=== PATIENT | male | born 1965 | race Caucasian/White ===

== ENCOUNTER → 2022-04-30 13:10 | Outpatient (BNVA) | payer MEDICARE, MEDICAID, SELFPAY | PROVIDERS: PCP Internal Medicine; Referring Provider Internal Medicine; Visit Provider Internal Medicine Cardiovascular Disease | DX: I48.0 Paroxysmal atrial fibrillation (principal) | CPT/HCPCS: 93005; 99202 ==

== ENCOUNTER 2022-11-09 09:33 | Outpatient (AMB) | payer MEDICARE, MEDICAID, SELFPAY ==
--- NOTE | 2022-11-09 09:45 | A.OFFVIS_ITS ---
Intake Vital Signs 11/09/22 09:46 Height 5 ft 10 in Weight 147 lb 11.355 oz BMI 21.2 BP 120/68 Blood Pressure Location Lt brachial Position Sitting Pulse 103 H Intake Visit Reasons: 6 month f/u ekg pre-op Intake Note: Pre-op clearance 6 month follow-up with ekg Product Mgmt Dev Manager Required: No Front Line Leader: Front Line Leader Present Accompanied by: Family/Other Allergies No Known Allergies Allergy (Verified 04/30/22 13:17) Medication List - Last Reconciled 11/09/22 by Rory Linares MD acetaminophen 650 mg PO Q6H PRN flecainide 50 mg PO Q12H loperamide 2 mg PO Q4H PRN verapamil ER 120 mg PO DAILY HPI HPI Comments History of Present Illness Details Gio comes for follow-up. Accompanied by his brother. No brain imaging on the chart. Patient denies any new symptoms. Denies any prolonged palpitation irregular heartbeat. No changes in his cognitive capacity. Taking all his medications. Denies any active cardiac symptoms. No exertional chest pain or shortness of breath. Plan for undergoing colonoscopy in the future [facility] Medical History Paroxysmal atrial fibrillation Hypertension Chronic cardiac arrhythmia Frontal lobe dementia Surgical History No pertinent past surgical history Family History Mother No problems noted. Father No problems noted. Social History Housing: House Alcohol intake: never Patient Tobacco Use Status: Current everyday Tobacco user Tobacco use type: Cigarette Cigarettes Per Day: 9 e-Cigarette/Vaping Use: Never Used Second Hand Smoke Exposure: Yes service: No Current occupational status: employed Cognitive needs: No Hearing needs: No Vision needs: Yes (reading glasses) Review of Systems Const Denies chills, Denies fatigue, Denies fever(s), Denies frequent falls, Denies weakness, Denies weight gain and Denies weight loss ENT Denies dizziness Card Denies chest pain, Denies leg edema, Denies lightheadedness, Denies palpitations, Denies dyspnea, Denies dyspnea on exertion, Denies orthopnea and Denies other (loss of consciousness) Resp Denies cough, Denies dyspnea and Denies dyspnea on exertion GI Denies hematochezia and Denies change in stool character Musc Denies abnormal gait, Denies muscle weakness, Denies numbness, Denies radiating pain into limb and Denies tingling Neuro Denies Abnormal speech present, Denies abnormal gait, Denies dizziness, Denies frequent falls, Denies numbness, Denies tingling and Denies weakness Endo Denies fatigue and Denies palpitations Physical Exam Vital Signs: Last Vital Signs Pulse 103 H 11/09/22 09:46 BP 120/68 11/09/22 09:46 BMI result Body Mass Index 21.2 Const General: cooperative, comfortable, alert and awake Nutritional Appearance: thin Orientation/consciousness: patient oriented x3 Limitations: no limitations HEENT Head: Yes normocephalic and Yes atraumatic Neck Neck: Yes trachea midline, Yes supple and Yes no JVD Resp Effort & Inspection: normal respiratory effort Auscultation: clear to auscultation bilaterally and diminished lung sounds Cardio Jugular venous distension: no JVD Rate: regular rate and tachycardic Rhythm: regular rhythm Heart sounds: S1 normal heart sound present, S2 normal heart sound present, no click, no gallops, no murmurs and no rubs Bruits: no carotid bruits GI Auscultation: normal bowel sounds Skin General skin exam: no rashes or lesions noted Neuro General: patient oriented x3 and no focal motor deficits Speech: No Abnormal speech present Extrem General: Yes no clubbing, cyanosis or edema Office Procedures EKG Details: EKG shows sinus tachycardia with left posterior fascicular block, unchanged from before. 42555-Tjeazwdzcidvwdhqo, Complete Assessment & Plan Assessment & Plan (1) Paroxysmal atrial fibrillation: Code(s): I48.0 - Paroxysmal atrial fibrillation Plan: Paroxysmal atrial fibrillation, highly symptomatic currently suppressed on flecainide and verapamil therapy. Doing well from that perspective. Will continue pursue rhythm control approach. I would like to obtain some old imaging/Neurology note regarding his cognitive impairment diagnosis. Currently not a candidate for oral anticoagulation therapy as he has no other risk factors. (2) Preoperative cardiovascular examination: Code(s): Z01.810 - Encounter for preprocedural cardiovascular examination Plan: Preoperative cardiovascular risk stratification for colonoscopy which is considered low risk procedure. Currently from cardiac perspective he remains asymptomatic. He is currently at low risk for perioperative cardiovascular morbidity mortality. Continue verapamil and flecainide in the perioperative time. Will follow up in the clinic in 6 months for EKG and in 1 year with me. Thank you for allowing me to partake in his care Coding Level of Care Code Est Pt Level 4 (46212) Diagnoses Paroxysmal atrial fibrillation I48.0 Preoperative cardiovascular examination Z01.810 CPT Codes EKG - CPT: 66634-Zoycauvjwbthggifj, Complete ([id number])
[2022-11-09 09:46] VITALS: BP 120/68; PULSE 103; BMI 21.2
== END 2022-11-09 10:04 | disposition home or self-care (01) ==
PROVIDERS: PCP Internal Medicine; Referring Provider Internal Medicine; Visit Provider Internal Medicine Cardiovascular Disease
DX: I48.0 Paroxysmal atrial fibrillation (principal); Z01.810 Encounter for preprocedural cardiovascular examination
CPT/HCPCS: 93010; 99214

== ENCOUNTER → 2022-11-09 09:33 | Outpatient (BNVA) | payer MEDICARE, MEDICAID, SELFPAY | PROVIDERS: PCP Internal Medicine; Referring Provider Internal Medicine; Visit Provider Internal Medicine Cardiovascular Disease | DX: Z01.810 Encounter for preprocedural cardiovascular examination (principal); I48.0 Paroxysmal atrial fibrillation; Z79.899 Other long term (current) drug therapy | CPT/HCPCS: 93005; 99212 ==

== ENCOUNTER 2023-09-30 10:42 | Outpatient (AMB) | payer MEDICARE, MEDICAID, SELFPAY ==
[2023-09-30 10:48] VITALS: BP 122/80; PULSE 76; O2SAT 97; BMI 20.5
--- NOTE | 2023-09-30 10:48 | MHC.PC.OV ---
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: No Claim Auditor: Present Accompanied by: Self / Same As Patient Allergies No Known Allergies Allergy (Verified 09/30/23 10:51) Tobacco use date assessed: 09/30/23 Dental Screening Dental Screen Date: 09/30/23 Did you have a dental visit in the last 12 months?: Yes Did you have a dental problem in the last 6 months where you did not have access to dental care?: No Was dental information given to patient?: Patient has dentist HPI pe HPI Details hyperlipidemia and hypertension; sees cardiology for afib [facility] Medical History Paroxysmal atrial fibrillation Hypertension Chronic cardiac arrhythmia Frontal lobe dementia Surgical History No pertinent past surgical history Family History Mother No problems noted. Father No problems noted. Social History Housing: House Alcohol intake: never Patient Tobacco Use Status: Current everyday Tobacco user Tobacco use type: Cigarette Cigarettes Per Day: 9 e-Cigarette/Vaping Use: Never Used Second Hand Smoke Exposure: Yes service: No Current occupational status: employed Cognitive needs: No Hearing needs: No Vision needs: Yes (reading glasses) Questionnaire PHQ-9 Over the last 2 weeks, how often have you been bothered by any of the following problems? 1. Little interest or pleasure in doing things: not at all 2. Feeling down, depressed, or hopeless: not at all 3. Trouble falling or staying asleep, or sleeping too much: not at all 4. Feeling tired or having little energy: not at all 5. Poor appetite or overeating: not at all 6. Feeling bad about yourself - or that you are a failure or have let yourself or your family down: not at all 7. Trouble concentrating on things, such as reading the newspaper or watching television: not at all 8. Moving or speaking so slowly that other people could have noticed. Or the opposite - being so fidgety or restless that you have been moving around a lot more than usual: not at all 9. Thoughts that you would be better off or of hurting yourself in some way: not at all Total score: 0 Depression Screening Interpretation: Negative Depression Screening Done: Yes 75766 - PHQ-9 Billing: Patient declined-do not bill Source: Developed by Drs. Elie Currie, Sultana Rowley, Nick Leon and colleagues, with an educational ida from [employer]. Thrive Questionnaire Date Thrive assessed: 09/30/23 I am a: Patient What is your living situation today?: I have a steady place to live Within the past 12 months, did the food you bought not last and you didn't have the money to get more?: Never true Within the past 12 months, did you worry whether your food would run out before you got money to buy more?: Never true Do you have trouble paying for medicines?: No Do you have trouble getting transportation to medical appointments?: No Do you have trouble paying your heating and electricity bill?: No Do you have trouble taking care of your child, family member or friend?: No Do you have trouble with day-to-day activities such as bathing, preparing meals, shopping, managing finances, etc.?: No Are you currently unemployed and looking for a job?: No Are you interested in more education?: No Please select the resources that you would like help with: None THRIVE Score: 0 AUDIT C Alcohol Use Questionnaire (AUDIT-C) 1. How often do you have a drink containing alcohol?: Never Total Score: 0 Score Reviewed/Action Taken: Yes CHARLEE-7 AMB Questionnaire CHARLEE-7 Date CHARLEE - 7 assessed: 09/30/23 Feeling nervous, anxious, or on edge: 0 = Not at all Not being able to stop or control worryin = Not at all Worrying too much about different things: 0 = Not at all Trouble relaxin = Not at all Being so restless that it is hard to sit still: 0 = Not at all Becoming easily annoyed or irritable: 0 = Not at all Feeling afraid as if something awful might happen: 0 = Not at all Total CHARLEE-7 score (0-4 normal; 5-9 mild; 10-14 moderate; 15-21 severe): 0 Source: Developed by Drs. Elie Currie, Sultana Rowley, Nick Leon and colleagues, with an educational ida from [employer]. CHARLEE-7 Assessment Billing CHARLEE-7 Assessment Tool: CHARLEE-7 Assessment 44650 Review of Systems Const Denies chills, Denies fatigue, Denies headache(s) and Denies weight loss Eyes Denies change in vision, Denies diplopia and Denies eye pain ENT Denies vertigo, Denies dizziness, Denies headache(s) and Denies nasal discharge Card Denies chest pain, Denies rapid heart rate and Denies dyspnea on exertion Resp Denies chest congestion, Denies cough, Denies pain with cough and Denies dyspnea on exertion GI Denies abdominal pain, Denies hematochezia and Denies change in bowel habits Musc Denies myalgias, Denies arthralgias and Denies joint swelling Skin/Breast Denies lesions and Denies unusual bruising Neuro Denies vertigo, Denies dizziness, Denies headache(s) and Denies focal weakness Endo Denies fatigue Physical exam (Primary Care) Vital Signs: Last Vital Signs Pulse 76 09/30/23 10:48 BP 122/80 09/30/23 10:48 Pulse Ox 97 09/30/23 10:48 Oxygen Delivery Method Room Air 09/30/23 10:48 BMI result Body Mass Index 20.5 Tobacco/Smoking Status: Tobacco use Status Tobacco use date assessed 09/30/23 09/30/23 10:54 Patient Tobacco Use Status Current everyday Tobacco 09/30/23 10:54 Tobacco use type Cigarette 09/30/23 10:54 e-Cigarette/Vaping Use Never Used 09/30/23 10:54 PHQ-9: PHQ-9 Score PHQ-9: Total score 0 09/30/23 11:17 Depression Screening Interpretation: Negative Thrive Assessment: Date of Thrive Assessment Date Thrive assessed 09/30/23 09/30/23 10:54 Const General: cooperative, healthy appearing and no acute distress Orientation/consciousness: oriented to person, oriented to place and oriented to time HENMT Head: Yes normal to inspection, Yes normocephalic and Yes atraumatic Mouth: Normal oral and palatal mucosa present and tongue normal Throat: Yes posterior oropharynx normal and Yes uvula midline Eyes General: appearance normal, both eyes and all related structures Neck Neck: Yes normal visual inspection, Yes full ROM and Yes no lymphadenopathy Thyroid: Thyroid normal Carotids: normal carotid upstroke Chest Chest palpation & inspection: normal inspection of the chest Resp Effort & Inspection: normal respiratory effort and able to speak in complete sentences Auscultation: clear to auscultation bilaterally Cardio Jugular venous distension: no JVD Palpation: normal PMI Rate: regular rate Rhythm: regular rhythm Heart sounds: S1 normal heart sound present and S2 normal heart sound present GI Inspection: Yes normal to inspection Palpation (GI): Soft to palpation and No hepatosplenomegaly present Auscultation: normal bowel sounds General: Yes no CVA tenderness Back/Spine/Pelvis Back: no CVA tenderness Skin General skin exam: no rashes or lesions noted Neuro General: oriented to person, oriented to place and oriented to time Extrem General: Yes normal to inspection and Yes full ROM Assessment and Plan Assessment & Plan (1) Physical exam: Code(s): Z00.00 - Encounter for general adult medical examination without abnormal findings Plan: do labs (2) Hypertension: Code(s): I10 - Essential (primary) hypertension Plan: stable; same rx (3) Chronic cardiac arrhythmia: Code(s): I49.9 - Cardiac arrhythmia, unspecified Plan: per cardiology Orders: Orders Lipid Panel 09/30/23 Z13.220 - Encounter for screening for lipoid disorders Complete Blood Count Auto Diff 09/30/23 Z13.0 - Encounter for screening for diseases of the blood and blood-forming organs and certain disorders involving the immune mechanism Comprehensive [place]. Panel Fast 09/30/23 Z13.9 - Encounter for screening, unspecified Thyroid Stimulating Hormone 09/30/23 Z13.29 - Encounter for screening for other suspected endocrine disorder Referrals Gastroenterology Referral Z12.11 - Encounter for screening for malignant neoplasm of colon Coding Level of Care Code Est Pt Prev Care 40-64y(19529) Diagnoses Physical exam Z00.00 Hypertension I10 Chronic cardiac arrhythmia I49.9 Additional Codes CHARLEE-7 Assessment Billing - CHARLEE-7 Assessment Tool: CHARLEE-7 Assessment 47474 ([id number])
== END 2023-09-30 12:40 | disposition home or self-care (01) ==
PROVIDERS: PCP Internal Medicine; Visit Provider Internal Medicine
DX: Z00.00 Encounter for general adult medical examination without abnormal findings (principal); I10 Essential (primary) hypertension; I49.9 Cardiac arrhythmia, unspecified
CPT/HCPCS: 99396

== ENCOUNTER 2024-05-12 11:21 | Outpatient (REF) | payer MEDICARE, MEDICAID, SELFPAY ==
[2024-05-12 12:21] LABS: MANUAL DIFF FLAG NO
[2024-05-12 12:42] LABS: Basophils Absolute Auto 0.1 X10*3/uL (0.0-0.2); Basophils Percent Auto 0.9 % (0-2); Eosinophils Absolute Auto 0.1 X10*3/uL (0.0-0.4); Eosinophils Percent Auto 1.9 % (0-4); Hematocrit 44.4 % (42.0-52.0); Hemoglobin 15.2 g/dl (14.0-18.0); Imm Gran Abs Auto 0.03 X10*3/uL (0.00-0.03); Imm Gran Pct Auto 0.4 % (0.0-0.4); Lymphocytes Absolute Auto 1.9 X10*3/uL (1.2-4.9); Lymphocytes Percent Auto 27.4 % (20-40); Mean Corpuscular HGB Conc 34.2 g/dl (31.0-36.0); Mean Corpuscular Hemoglobin 29.4 pg (27.0-33.0); Mean Corpuscular Volume 85.9 fL (80.0-98.0); Mean Platelet Volume 9.4 fL (9.4-12.4); Monocytes Absolute Auto 0.5 X10*3/uL (0.1-1.2); Monocytes Percent Auto 7.4 % (2-11); Neutrophils Absolute Auto 4.3 x10*3/uL (2.0-8.3); Platelet Count 374 X10*3/uL (160-400); Red Blood Count 5.17 X10*6/uL (4.60-5.80); Red Cell Distribution Width 13.2 % (11.0-16.0); White Blood Count 6.9 X10*3/uL (4.8-10.8)
[2024-05-12 13:11] LABS: Appearance Urine Clear; Color Urine Yellow; Glucose Urine UA Negative (Negative); Leukocyte Esterase Urine Trace (Negative); Nitrite Urine Negative (Negative); UMIC TRIGGER UA YES; Urine Blood Negative (Negative); Urine Ketones Negative (Negative); Urine Protein Negative (Neg-Trace)
[2024-05-12 13:11] LABS: Alanine Aminotransferase 23 U/L (0-40); Albumin Level 4.3 g/dL (3.5-5.0); Alkaline Phosphatase 76 U/L (39-117); Anion Gap 11 (12-20); Aspartate Amino Transferase 19 U/L (5-37); Bilirubin Total 0.5 mg/dL (0.0-1.0); Blood Urea Nitrogen 18 mg/dL (9-16); Calcium 9.4 mg/dL (8.4-10.2); Carbon Dioxide 28 mmol/L (22-29); Chloride 106 mmol/L (96-108); Cholesterol 180 mg/dL (<200); Estimated Glomerular Filt Rate > 60; Glucose Fasting 99 mg/dL (60-99); HDL Cholesterol 54 mg/dL (>40); LDL Cholesterol Calculated 89 mg/dL (<100); Potassium 4.3 mmol/L (3.3-5.1); Sodium 141 mmol/L (135-145); Total Protein 7.3 g/dL (6.5-8.0); Triglycerides 187 mg/dL (<150)
[2024-05-12 13:17] LABS: Bacteria Urine None Seen (None Seen); Hyaline Casts Urine 0-2 /LPF (0-2); RBC Urine 0-2 /HPF (0-2); Squamous Epithelial Cell Urine 0-2 /HPF (0-2); WBC Urine 0-5 /HPF (0-5)
[2024-05-12 13:25] LABS: Thyroid Stimulating Hormone 1.73 uIU/mL (0.32-4.0)
--- OUTSIDE RECORDS SUMMARY | 2024-05-12 13:44 | XMS_ITS | Clinical Summary ---
Author Organization [facility] Address [address] [place] [address] Care Team Providers Care Bullet Slugs Inspector Name Role Phone Unavailable Primary Care Provider Unavailabl e Social History Tobacco Use Types Packs/Day Years Used Date Smoking Tobacco: Never Assessed Sex and Gender Information Value Date Recorded Sex Assigned at Not on file Gender Identity Not on file Sexual Orientation Not on file Plan of Treatment Not on file
== END 2024-05-12 11:22 | disposition home or self-care (01) ==
LOC: HO.LAB 11:21
PROVIDERS: PCP Internal Medicine; Visit Provider Internal Medicine
DX: I48.0 Paroxysmal atrial fibrillation (principal); G31.09 Other frontotemporal neurocognitive disorder; F02.80 Dementia in other diseases classified elsewhere, unspecified severity, without behavioral disturbance, psychotic disturbance, mood disturbance, and anxiety; I10 Essential (primary) hypertension; N39.0 Urinary tract infection, site not specified; Z13.0 Encounter for screening for diseases of the blood and blood-forming organs and certain disorders involving the immune mechanism; Z13.9 Encounter for screening, unspecified; Z13.220 Encounter for screening for lipoid disorders; Z13.29 Encounter for screening for other suspected endocrine disorder
CPT/HCPCS: 36415; 80053; 80061; 81001; 84443; 85025; 96127; 99212

== ENCOUNTER 2024-05-12 11:21 | Outpatient (AMB) | payer MEDICARE, MEDICAID, SELFPAY ==
[2024-05-12 11:36] VITALS: BP 112/68; PULSE 82; O2SAT 98; BMI 20.4
--- NOTE | 2024-05-12 11:36 | MHC.PC.OV ---
Vital Signs 05/12/24 11:36 Height 5 ft 10 in Weight 142 lb 2 oz BMI 20.4 BP 112/68 Blood Pressure Location Lt brachial Position Sitting Pulse 82 Pulse Source Pulse Oximeter Pulse Oximetry (%) 98 Oxygen Delivery Method Room Air Intake Visit Reasons: incontinence issues Supervisor Shuttle Preparation Required: No Accompanied by: Self / Same As Patient Allergies No Known Allergies Allergy (Verified 05/12/24 11:36) Medication List - Last Reconciled 05/15/24 by Nathaniel Jensen MD acetaminophen 650 mg PO Q6H PRN flecainide 50 mg PO Q12H loperamide 2 mg PO Q4H PRN rosuvastatin 5 mg PO DAILY verapamil ER 120 mg PO DAILY Tobacco use date assessed: 05/12/24 Dental Screening Dental Screen Date: 05/12/24 Did you have a dental visit in the last 12 months?: No Did you have a dental problem in the last 6 months where you did not have access to dental care?: No Was dental information given to patient?: No HPI incontinence issues HPI Details frontal lobe dementia and afib; sees cardiology; cognition stable [facility] Medical History Paroxysmal atrial fibrillation Hypertension Chronic cardiac arrhythmia Frontal lobe dementia Surgical History No pertinent past surgical history Family History Mother No problems noted. Father No problems noted. Social History Housing: House Alcohol intake: never Patient Tobacco Use Status: Current everyday Tobacco user Tobacco use type: Cigarette Cigarettes Per Day: 9 e-Cigarette/Vaping Use: Never Used Second Hand Smoke Exposure: Yes service: No Current occupational status: employed Cognitive needs: No Hearing needs: No Vision needs: Yes (reading glasses) Questionnaire PHQ-9 Over the last 2 weeks, how often have you been bothered by any of the following problems? 1. Little interest or pleasure in doing things: not at all 2. Feeling down, depressed, or hopeless: not at all 3. Trouble falling or staying asleep, or sleeping too much: not at all 4. Feeling tired or having little energy: not at all 5. Poor appetite or overeating: not at all 6. Feeling bad about yourself - or that you are a failure or have let yourself or your family down: not at all 7. Trouble concentrating on things, such as reading the newspaper or watching television: not at all 8. Moving or speaking so slowly that other people could have noticed. Or the opposite - being so fidgety or restless that you have been moving around a lot more than usual: not at all 9. Thoughts that you would be better off or of hurting yourself in some way: not at all Total score: 0 Depression Screening Interpretation: Negative Depression Screening Done: Yes 47857 - PHQ-9 Billing: Patient declined-do not bill Source: Developed by Drs. Elie Currie, Sultana Rowley, Nick Leon and colleagues, with an educational ida from [employer]. Thrive Questionnaire Date Thrive assessed: 05/12/24 I am a: Patient What is your living situation today?: I have a steady place to live Within the past 12 months, did the food you bought not last and you didn't have the money to get more?: Never true Within the past 12 months, did you worry whether your food would run out before you got money to buy more?: Never true Do you have trouble paying for medicines?: No Do you have trouble getting transportation to medical appointments?: No Do you have trouble paying your heating and electricity bill?: No Do you have trouble taking care of your child, family member or friend?: No Do you have trouble with day-to-day activities such as bathing, preparing meals, shopping, managing finances, etc.?: No Are you currently unemployed and looking for a job?: No Are you interested in more education?: No Please select the resources that you would like help with: None Currently or been in a relationship where the following occur: No concerns reported THRIVE Score: 0 AUDIT C Alcohol Use Questionnaire (AUDIT-C) 1. How often do you have a drink containing alcohol?: Never Total Score: 0 Score Reviewed/Action Taken: Yes CHARLEE-7 AMB Questionnaire CHARLEE-7 Date CHARLEE - 7 assessed: 05/12/24 Feeling nervous, anxious, or on edge: 0 = Not at all Not being able to stop or control worryin = Not at all Worrying too much about different things: 0 = Not at all Trouble relaxin = Not at all Being so restless that it is hard to sit still: 0 = Not at all Becoming easily annoyed or irritable: 0 = Not at all Feeling afraid as if something awful might happen: 0 = Not at all Total CHARLEE-7 score (0-4 normal; 5-9 mild; 10-14 moderate; 15-21 severe): 0 Source: Developed by Drs. Elie Currie, Sultana Rowley, Nick Leon and colleagues, with an educational ida from [employer]. CHARLEE-7 Assessment Billing CHARLEE-7 Assessment Tool: CHARLEE-7 Assessment 77877 Review of Systems Const Denies chills, Denies headache(s) and Denies weight loss ENT Denies headache(s) Card Denies chest pain, Denies syncope, Denies irregular heart rhythm and Denies dyspnea Resp Denies chest congestion, Denies cough and Denies dyspnea GI Denies abdominal pain, Denies change in stool character, Denies nausea and Denies vomiting Musc Denies deformity and Denies joint swelling Neuro Denies syncope and Denies headache(s) Physical exam (Primary Care) Vital Signs: Last Vital Signs Pulse 82 05/12/24 11:36 BP 112/68 05/12/24 11:36 Pulse Ox 98 05/12/24 11:36 Oxygen Delivery Method Room Air 05/12/24 11:36 BMI result Body Mass Index 20.4 Tobacco/Smoking Status: Tobacco use Status Tobacco use date assessed 05/12/24 05/12/24 11:40 Patient Tobacco Use Status Current everyday Tobacco 05/12/24 11:40 Tobacco use type Cigarette 05/12/24 11:40 e-Cigarette/Vaping Use Never Used 05/12/24 11:40 PHQ-9: PHQ-9 Score PHQ-9: Total score 0 05/12/24 11:40 Depression Screening Interpretation: Negative Thrive Assessment: Date of Thrive Assessment Date Thrive assessed 05/12/24 05/12/24 11:40 Currently or been in a relationship where the following occur: No concerns reported Const General: cooperative, comfortable, no acute distress and alert Neck Neck: Yes no lymphadenopathy Thyroid: Thyroid normal Resp Effort & Inspection: normal respiratory effort Auscultation: clear to auscultation bilaterally Percussion: percussion normal Cardio Jugular venous distension: no JVD Palpation: normal PMI Rate: regular rate Rhythm: regular rhythm Heart sounds: S1 normal heart sound present and S2 normal heart sound present GI Inspection: Yes normal to inspection Palpation (GI): No hepatosplenomegaly present Skin General skin exam: no rashes or lesions noted Extrem General: Yes no clubbing, cyanosis or edema Coding Level of Care Code Est Pt Level 3 (27823) Diagnoses Paroxysmal atrial fibrillation I48.0 Frontal lobe dementia G31.09; F02.80 Additional Codes CHARLEE-7 Assessment Billing - CHARLEE-7 Assessment Tool: CHARLEE-7 Assessment 29646 ([id number]) Assessment & Plan Assessment & Plan (1) Paroxysmal atrial fibrillation: Code(s): I48.0 - Paroxysmal atrial fibrillation Category: Medical Plan: stable; same rx (2) Frontal lobe dementia: Code(s): G31.09 - Other frontotemporal neurocognitive disorder; F02.80 - Dementia in other diseases classified elsewhere, unspecified severity, without behavioral disturbance, psychotic disturbance, mood disturbance, and anxiety Category: Medical Plan: stable; same rx Orders: Orders UA and rflx microscopic 05/12/24 N39.0 - Urinary tract infection, site not specified Referrals Cardiology Referral I48.0 - Paroxysmal atrial fibrillation
--- OUTSIDE RECORDS SUMMARY | 2024-05-12 13:07 | XMS_ITS | Clinical Summary ---
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
--- OUTSIDE RECORDS SUMMARY | 2024-05-12 13:07 | XMS_ITS ---
Author Organization [facility] Address [address] [place] [address] Care Team Providers Care Government Documents Librarian Name Role Phone Nathaniel Jensen MD Primary Care Provider Unavaila Elie Delong Unavailable [phone] REASON FOR VISIT cancel procedure Encounters Encounter Location Date Provider Diagnosis [facility] [address] [place] [address] 05/04/2024 Elie Larkin Plan Of Treatment No Information Progress Notes * MAISHA ROBBINSDOB:1965 (58 yo M)Acc No.[id number]:05/04/2024 Patient:?MAISHA ROBBINS :1965???Age:58 Y???Sex:Male Address:[address] [place] [address] [facility], [place], [address] * true * Date:? Generated for Sinan macias/Gualberto/eTransmitting on:?05/12/2024 01:07 PM EDT
--- OUTSIDE RECORDS SUMMARY | 2024-05-12 13:07 | XMS_ITS ---
Author Organization [facility] Address [address] [place] [address] Care Team Providers Care Feed Miller Name Role Phone Nathaniel Jensen MD Primary Care Provider Elie Dougherty [phone] Allergies No Known Allergies REASON FOR VISIT Patient presents today for a colon screening Medications Medication SIG (Take, Route, Frequency, Duration) Notes Start Date End Date Status Flecainide Acetate 50 MG as directed Ora l every 12 hrs Active Verapamil HCl ER 120 MG Oral for 30 Active Rosuvastatin Calcium 5 MG Oral for 30 Active Acetaminophen 325 MG 2 tablet as needed orally every 4 hrs Active Loperamide HCl 2 MG 1 capsule as needed Orally Four times a day Active Social History Tobacco Use: Social History Observation Description Date Details (start date - stop date) Current Smoker NA - NA Tobacco Use/Smoking Question Answer Notes Patient is a current smoker How many cigarettes a day do you smoke? 6-10 Alcohol Screen Question Answer Notes Did you have a drink containing alcohol in the p ast year? No Points 0 Interpretation Negative Section Notes: Smokes 5 cigs QD, no EtOH Vital Signs Blood pressure systolic 00 mm Hg 03/09/19 25 Blood pressure diastolic 00 mm Hg 025 Height 70 in 03/09/2024 Weight 141 lbs 03/09/2024 BMI 20.23 kg/m2 03/09/2024 Encounters Encounter Location Date Provider [facility] [address] [place] [phone] 03/09/2024 Elie Larkin Colon cancer screeni ng Z12.11 and Preprocedural examination Z01.818 Assessments Encounter Date Diagnosis (ICD Code) Assessment Notes Treatment Notes Treatment Clinical Notes Section Notes 03/09/2024 Colon cancer screening (ICD-10 - Z12.11) Overall, Maisha appears well and is not having any new or worrisome GI complaints. We again reviewed the importance of a screening colonoscopy in regard to colon cancer prevention and/or early detection. He reports that he is now agreeable to that. Full consent is obtained for this, including risks of bleeding and perforation. The procedure will be done with monitored anesthesia care. Maisha was comfortable with this plan. Thank you again for allowing me to participate in Maisha's care. I shall continue to keep you advised of his progress. 03/09/2024 Preprocedural examination (ICD-10 - Z01.818) Overall, Maisha appears well and is not having any new or worrisome GI complaints. We again reviewed the importance of a screening colonoscopy in regard to colon cancer prevention and/or early detection. He reports that he is now agreeable to that. Full consent is obtained for this, including risks of bleeding and perforation. The procedure will be done with monitored anesthesia care. Maisha was comfortable with this plan. Thank you again for allowing me to participate in Maisha's care. I shall continue to keep you advised of his progress. Plan Of Treatment Future Test Test Name Order Date COLONOSCOPY 03/09/2024 Next Appt Details Follow Up: prn, Reason: Progress Notes * MAISHA ROBBINSDOB:1965 (58 yo M)Acc No.[id number]:03/09/2024 Progress Notes Patient:?MAISHA ROBBINS Provider:?Eile Larkin MD :1965???Age:58 Y???Sex:Male Eric e:03/09/2024 Address:[address] [place], [place] [id number] Pcp:Nathaniel Jensen MD Subjective: * Chief Complaints: * ???Patient presents today fo r a colon screening * HPI: ???incontinence:? I saw Maisha in the office today for evaluation of colorectal cancer screening. He was accompanied by Erinn from [facility] where he lives. ?I last saw Maisha in 2022 when he had been scheduled for a screening colonoscopy. However, that was ultimately canceled by him as he refused to have the procedure for unclear reasons. As far as I know he has never had a colonoscopy. He has been feeling well from a GI standpoint. He has been eating comfortably and denies any significant heartburn or dysphagia. He denies abdominal pain, jaundice, nor unintentional weight loss. He reports his bowel movements have been regular and without any signs of bleeding. There is no known family history of colon cancer. * ROS:?General/Constitutional:?Change in appetite?denies.?Chills?denies.?Fatigue?denies.?Ophthalmologic:?Comments?all negative.?ENT:?Comments?all negative.?Respiratory:?hemoptysis?denies.?Cough?denies.?Cardiovascular:?Chest pain?denies.?Orthopnea?denies.?Gastrointestinal:?Comments?See HPI for details.?Genitourinary:?Hematuria?denies.?Dysuria?denies.?Musculoskeletal:?Painful joints?denies.?Weakness?denies.?Skin:?Itching?denies.?Rash?denies.?Neurologic:?Headache?denies.?Seizures?denies.?Psychiatric:?Comments?all negative.? * Medical History:? * Surgical History:?Denies Pas t Surgical History * Hospitalization/Major Diagno stic Procedure:?No Hospitalization History. * Family History:?Father: dece ased.?Mother: .? No known hx of colon cancer. * Social History:?Tobacco Use:?Tobacco Use/Smoking?Patient is a?current smoker,?How many cigarettes a day do you smoke??6-10.?Drugs/Alcohol:?Alcohol Screen?Did you have a drink containing alcohol in the past year??No,?Points?0,?Interpretation?Negative.?Miscellaneous:?Living with: Lives at [facility]. Marital status: single. Occupation: Unemployed. ???Smokes 5 cigs QD, no EtOH. * Medications:?TakingAcetamino phen 325 MG Tablet 2 tablet as needed orally every 4 hrsLoperamide HCl 2 MG Capsule 1 capsule as needed Orally Four times a dayRosuvastatin Calcium 5 MG Tablet Oral Verapamil HCl ER 120 MG Tablet Extended Release Oral Flecainide Acetate 50 MG Tablet as directed Oral every 12 hrsTaking Acetaminophen 325 MG Tablet 2 tablet as needed orally every 4 hrsTaking Loperamide HCl 2 MG Capsule 1 capsule as needed Orally Four times a dayTaking Rosuvastatin Calcium 5 MG Tablet Oral Taking Verapamil HCl ER 120 MG Tablet Extended Release Oral Taking Flecainide Acetate 50 MG Tablet as directed Oral every 12 hrsDiscontinuedAcetamin MiraLax (colon prep) 17 GM/SCOOP Powder 1 238Gm bottle mixed with Gatorade or Crystal Light Orally begin at 5:00 p.m. the day before the procedureDulcolax (colon prep) 5 MG Tablet Delayed Release take at 3:00 p.m and 7:00p.m. Orally two tablets twice a day for one dayMedication List reviewed and reconciled with the patientDiscontinued Acetamin Discontinued MiraLax (colon prep) 17 GM/SCOOP Powder 1 238Gm bottle mixed with Gatorade or Crystal Light Orally begin at 5:00 p.m. the day before the procedureDiscontinued Dulcolax (colon prep) 5 MG Tablet Delayed Release take at 3:00 p.m and 7:00p.m. Orally two tablets twice a day for one dayMedication List reviewed and reconciled with the patient * Allergies:?N.K.D.A.yes[Aller gies Verified] Objective: * Vitals:?Wt: 141 lbs, Ht: 70 in, BMI:20.23 Index, BP: 00/00 mm Hg. * Examination: ???General Examination: ?GENERAL APPEARANCE:?pleasant, well nourished, well developed, in no acute distress.?EYES:?sclera non-icteric.?ORAL CAVITY:?mucosa moist.?NECK/THYROID:?no cervical lymphadenopathy, neck supple.?SKIN:?nonjaundiced, no spider angiomata.?HEART:?S1, S2 normal.?LUNGS:?clear to auscultation bilaterally.?ABDOMEN:?normal bowel sounds, no guarding or rigidity, no guarding or rigidity, no masses palpable, soft, nontender, nondistended.?EXTREMITIES:?no edema.?NEUROLOGIC:?alert and oriented.? Assessment: * Assessment: 1.?Colon cancer screening - Z12.11 (Primary)?2.?Preprocedural examination - Z01.818? Overall, Maisha appears well a nd is not having any new or worrisome GI complaints. We again reviewed the importance of a screening colonoscopy in regard to colon cancer prevention and/or early detection. He reports that he is now agreeable to that. Full consent is obtained for this, including risks of bleeding and perforation. The procedure will be done with monitored anesthesia care. Maisha was comfortable with this plan. Thank you again for allowing me to participate in Maisha's care. I shall continue to keep you advised of his progress. Plan: * Treatment: * Procedure Codes:? * Follow Up:?prn * * Sign off status: Completed true * Provider:?Elie Larkin MD Date:? 025 Generated for Sinan macias/Gualberto/eTransmitting on:?05/12/2024 01:07 PM EDT History and Physical Notes * HPI (History of Present Illness) Category Sub-Category Detail Notes Category Not es incontinence I saw Maisha in the office today for evaluation of colorectal cancer screening. He was accompanied by Erinn from [facility] where he lives. I last saw Maisha in 2022 when he had been scheduled for a screening colonoscopy. However, that was ultimately canceled by him as he refused to have the procedure for unclear reasons. As far as I know he has never had a colonoscopy. He has been feeling well from a GI standpoint. He has been eating comfortably and denies any significant heartburn or dysphagia. He denies abdominal pain, jaundice, nor unintentional weight loss. He reports his bowel movements have been regular and without any signs of bleeding. There is no known family history of colon cancer. Examination Category Sub-Category Detail Notes Category Not es General Examination GENERAL APPEARANCE: pleasant , well nourished, well developed, in no acute distress HEAD: EYES: sclera non-icteric EARS: NOSE: THROAT: NECK/THYROID: no cervical lymphade nopathy, neck supple HEART: S1, S2 normal CHEST: LUNGS: clear to auscultatio n bilaterally ABDOMEN: normal bowel sounds, no guarding or rigidity, no guarding or rigidity, no masses palpable, soft, nontender, nondistended NEUROLOGIC: alert and oriented SKIN: nonjaundiced, no spi glendy angiomata EXTREMITIES: no edema PERIPHERAL PULSES: BACK: BREASTS: MUSCULOSKELETAL: MALE GENITOURINARY: LYMPH NODES: RECTAL EXAM: FEMALE GENITOURINARY: ORAL CAVITY: mucosa moist
--- OUTSIDE RECORDS SUMMARY | 2024-05-12 13:07 | XMS_ITS ---
Author Organization [facility] Address [address] [place] [address] Care Team Providers Care Charging Machine Operator Name Role Phone Nathaniel Jensen MD Primary Care Provider Unavaila Elie Delong Unavailable [phone] REASON FOR VISIT left msg - 2 Encounters Encounter Location Date Provider Diagnosis [facility] [address] [place] [address] 04/22/2024 Elie Larkin Plan Of Treatment No Information Progress Notes * MAISHA ROBBINSDOB:1965 (58 yo M)Acc No.[id number]:04/22/2024 Patient:?MAISHA ROBBINS :1965???Age:58 Y???Sex:Male Address:[address] [place] [address] [address] [facility], [place], [address] * true * Date:? Generated for Sinan macias/Gualberto/eTransmitting on:?05/12/2024 01:06 PM EDT
--- OUTSIDE RECORDS SUMMARY | 2024-05-12 13:07 | XMS_ITS | Patient Health Record ---
Author Organization [facility] Address [address] [place] [address] Care Team Providers Care Security Business Analyst Name Role Phone Nathaniel Jensen MD Primary Care Provider Elie Dougherty Unavailable [phone] Allergies No Known Allergies Reason For Referral No Information Medications Medication SIG (Take, Route, Frequency, Duration) Notes Start Date End Date Status Flecainide Acetate 50 MG as directed Ora l every 12 hrs Active Acetaminophen 325 MG 2 tablet as needed orally every 4 hrs Active Loperamide HCl 2 MG 1 capsule as needed Orally Four times a day Active Verapamil HCl ER 120 MG Oral for 30 Active Rosuvastatin Calcium 5 MG Oral for 30 Active Social History Tobacco Use: Social History [...] Points 0 Interpretation Negative Section Notes: Smokes 8 cigs QD, no EtOH Smokes 5 cigs QD, no EtOH Problems Problem Type SNOMED Code ICD Code Onset Dates Problem Status W/U Status Risk Notes Problem [id number] Colon cancer screening (Z12.11) Active confirmed Vital Signs Blood pressure diastolic 00 mm Hg 03/09/2024 Height 70 in 03/09/2024 Blood pressure systolic 00 mm Hg 03/09/2024 Weight 141 lbs 03/09/2024 BMI 20.23 kg/m2 03/09/2024 Encounters Encounter Location Date Provider Diagnosis [facility] [address] [place] [address] 03/09/2024 Elie Larkin Colon cancer screeni ng Z12.11 and Preprocedural examination Z01.818 [facility] [address] [place] [address] 10/26/2023 Elie Larkin [facility] [address] [place] [address] 04/22/2024 Elie Larkin [facility] [address] [place] [address] 05/04/2024 Elie Larkin Assessments Encounter Date Diagnosis (ICD Code) Assessment [...] Future Test Test Name Order Date COLONOSCOPY 10/06/2022 COLONOSCOPY 03/09/2024 Insurance Providers Payer Name Payer Address Payer Phone Subscriber Number Group Number Insured Name Patient Relationship to Insured Coverage Start Date Coverage End Date MEDICARE OF [place] [address] [place] [id number] MAISHA ROBBINS Self - patient is the insured MEDICAID OF [facility] [address] [place] [address] [phone] [id number] MAISHA ROBBINS Self - patient is the insured Medical (General) History Medical History History ICD Code Denies CO,DM,CVA,Lung disease,renal dise ase Hypertension Cardiac arrhythmia--Afib Hyperlipidemia 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
== END 2024-05-12 11:50 | disposition home or self-care (01) ==
LOC: HO.HMCH 11:22
PROVIDERS: PCP Internal Medicine; Visit Provider Internal Medicine
DX: I48.0 Paroxysmal atrial fibrillation (principal); G31.09 Other frontotemporal neurocognitive disorder; F02.80 Dementia in other diseases classified elsewhere, unspecified severity, without behavioral disturbance, psychotic disturbance, mood disturbance, and anxiety

== ENCOUNTER 2024-10-04 12:39 | Outpatient (AMB) | payer MEDICARE, MEDICAID, SELFPAY ==
--- OUTSIDE RECORDS SUMMARY | 2024-06-07 07:30 | XMS_ITS ---
Author Organization [facility] Address [address] [place] [address] Care Team Providers Care Sports Marketing Internship Name Role Phone Nathaniel Jensen MD Primary Care Provider Unavaila Elie Delong Unavailable [phone] REASON FOR VISIT screening Encounters Encounter Location Date Provider Diagnosis [facility] [address] [address] [place], [place] [id number] 06/07/2024 Elie Larkin Plan Of Treatment No Information Progress Notes * MAISHA ROBBINSDOB:1965 (59 yo M)Acc No.[id number]:06/07/2024 COLON WITH MAC Patient: MAISHA MENDEZ Provider: Eliana Larkin MD :1965 A ge:58 Y S ex:Male Date:06/07/2024 Address:[address] [place] [address], [facility] Pcp:Nathaniel Jensen MD Subjective: * Chief Complaints: * 1 . Screening. * Medical History: Objective: * Vitals: Assessment: Plan: * Treatment: * * The named appointment provid er may or may not be the originator of this progress note, and it is not deemed complete until electronically signed by the appointment provider. Sign off status: Pending * Provider: Eliana Larkin MD Date: 06/07/2024 Generated for Sinan macias/Gualberto/eTelisaitting on: 10/04/2024 01:13 PM EDT
[2024-10-04 12:42] VITALS: BP 116/80; PULSE 90; O2SAT 95; BMI 21.7
--- NOTE | 2024-10-04 12:42 | A.OFFPC_ITS ---
Vital Signs 10/04/24 12:42 Height 5 ft 10 in Weight 151 lb 2 oz BMI 21.7 BP 116/80 Blood Pressure Location Lt brachial Position Sitting Pulse 90 Pulse Source Pulse Oximeter Pulse Oximetry (%) 95 Oxygen Delivery Method Room Air Intake Visit Reasons: BENJAMÍN Dr reilly Composition Roofer Required: No Accompanied by: Self / Same As Patient Allergies No Known Allergies Allergy (Verified 10/04/24 12:59) Medication List - Last Reconciled 10/04/24 by Hoang Olvera MD acetaminophen 650 mg PO Q6H PRN flecainide 50 mg PO Q12H loperamide 2 mg PO Q4H PRN rosuvastatin 5 mg PO DAILY verapamil ER 120 mg PO DAILY Tobacco use date assessed: 10/04/24 Dental Screening Dental Screen Date: 10/04/24 Did you have a dental visit in the last 12 months?: No Did you have a dental problem in the last 6 months where you did not have access to dental care?: No Was dental information given to patient?: No HPI BENJAMÍN Dr reilly HPI Details Patient comes in today for his follow up visit - is transferring over from Dr. Reilly, who retired from the practice a few months ago Patient states that he feels okay He denies any headaches or dizziness Denies any chest pains, no SOB No nausea/vomiting, no abdominal pain No change in bowel habits noted He last had his labs done back in April 2024 and has no other follow up labs done since Per correspondence from his skilled nursing staff, patient's cognition has been declining gradually and he is now at a point wherein he is unable to make healthcare decisions for himself and needs help with his ADLs so they are now requesting to have his HCP activation form completed and initiated [facility] Medical History (Updated 10/04/24 @ 13:21 by Hoang Olvera MD) Smoker Pure hypercholesterolemia Essential hypertension Paroxysmal atrial fibrillation Chronic cardiac arrhythmia Frontal lobe dementia Surgical History No pertinent past surgical history Family History Mother No problems noted. Father No problems noted. Social History Housing: House Alcohol intake: never Patient Tobacco Use Status: Current everyday Tobacco user Tobacco use type: Cigarette Cigarettes Per Day: 9 e-Cigarette/Vaping Use: Never Used Second Hand Smoke Exposure: Yes service: No Current occupational status: employed Cognitive needs: No Hearing needs: No Vision needs: Yes (reading glasses) Questionnaire PHQ-9 Over the last 2 weeks, how often have you been bothered by any of the following problems? 1. Little interest or pleasure in doing things: not at all 2. Feeling down, depressed, or hopeless: not at all 3. Trouble falling or staying asleep, or sleeping too much: not at all 4. Feeling tired or having little energy: not at all 5. Poor appetite or overeating: not at all 6. Feeling bad about yourself - or that you are a failure or have let yourself or your family down: not at all 7. Trouble concentrating on things, such as reading the newspaper or watching television: not at all 8. Moving or speaking so slowly that other people could have noticed. Or the op posite - being so fidgety or restless that you have been moving around a lot more than usual: not at all 9. Thoughts that you would be better off or of hurting yourself in some way: not at all Total score: 0 Depression Screening Interpretation: Negative Depression Screening Done: Yes 67245 - PHQ-9 Billing: Yes Source: Developed by Drs. Elie Currie, Sultana Rowley, Nick Leon and colleagues, with an educational ida from [employer]. Thrive Questionnaire Date Thrive assessed: 10/04/24 I am a: Patient What is your living situation today?: I have a steady place to live Within the past 12 months, did the food you bought not last and you didn't have the money to get more?: Never true Within the past 12 months, did you worry whether your food would run out before you got money to buy more?: Never true Do you have trouble paying for medicines?: No Do you have trouble getting transportation to medical appointments?: No Do you have trouble paying your heating and electricity bill?: No Do you have trouble taking care of your child, family member or friend?: No Do you have trouble with day-to-day activities such as bathing, preparing meals, shopping, managing finances, etc.?: No Are you currently unemployed and looking for a job?: No Are you interested in more education?: No Please select the resources that you would like help with: None Currently or been in a relationship where the following occur: No concerns reported THRIVE Score: 0 AUDIT C Alcohol Use Questionnaire (AUDIT-C) 1. How often do you have a drink containing alcohol?: Never 3. How often do you have six or more drinks on one occasion?: Never Total Score: 0 Score Reviewed/Action Taken: Yes CHARLEE-7 AMB Questionnaire CHARLEE-7 Date CHARLEE - 7 assessed: 10/04/24 Feeling nervous, anxious, or on edge: 0 = Not at all Not being able to stop or control worryin = Not at all Worrying too much about different things: 0 = Not at all Trouble relaxin = Not at all Being so restless that it is hard to sit still: 0 = Not at all Becoming easily annoyed or irritable: 0 = Not at all Feeling afraid as if something awful might happen: 0 = Not at all Total CHARLEE-7 score (0-4 normal; 5-9 mild; 10-14 moderate; 15-21 severe): 0 Source: Developed by Drs. Elie Currie, Sultana Rowley, Nick Leon and colleagues, with an educational ida from [employer]. CHARLEE-7 Assessment Billing CHARLEE-7 Assessment Tool: CHARLEE-7 Assessment 93030 Review of Systems Const Details: Patient denies any acute issues or symptoms but his cognition has been declining and per correspondence from his skilled nursing staff, he is now no longer able to make healthcare decisions on his own so information here may not necessarily be accurate or reliable Denies chills, Denies fatigue, Denies fever(s) and Denies headache(s) ENT Denies dysphagia, Denies dizziness, Denies otalgia, Denies headache(s), Denies neck pain, Denies odynophagia and Denies sore throat Card Denies chest pain, Denies palpitations and Denies dyspnea Resp Denies chest congestion, Denies cough and Denies dyspnea GI Denies abdominal pain, Denies constipation, Denies dysphagia, Denies heartburn, Denies diarrhea, Denies nausea, Denies odynophagia and Denies vomiting Denies dysuria, Denies nocturia and Reports urinary incontinence (mostly at night, per skilled nursing staff) Musc Denies back pain and Denies neck pain Skin/Breast Denies rash Neuro Denies dizziness, Denies headache(s) and Reports memory loss (per skilled nursing staff) Psych Reports memory loss (per skilled nursing staff) Endo Denies fatigue and Denies palpitations Physical exam (Primary Care) Vital Signs: Last Vital Signs Pulse 90 10/04/24 12:42 BP 116/80 10/04/24 12:42 Pulse Ox 95 10/04/24 12:42 Oxygen Delivery Method Room Air 10/04/24 12:42 BMI result Body Mass Index 21.7 Tobacco/Smoking Status: Tobacco use Status Tobacco use date assessed 10/04/24 10/04/24 12:48 Patient Tobacco Use Status Current everyday Tobacco 10/04/24 12:48 Tobacco use type Cigarette 10/04/24 12:48 e-Cigarette/Vaping Use Never Used 10/04/24 12:48 PHQ-9: PHQ-9 Score PHQ-9: Total score 0 10/04/24 12:48 Depression Screening Interpretation: Negative Thrive Assessment: Date of Thrive Assessment Date Thrive assessed 10/04/24 10/04/24 12:48 Currently or been in a relationship where the following occur: No concerns reported Const General: no acute distress and alert HENMT Ears: TM's normal bilaterally and EAC's normal Throat: Yes posterior oropharynx normal and Yes tonsils normal (no TP congestion) Neck Neck: Yes supple and No lymphadenopathy Thyroid: Thyroid normal Resp Auscultation: clear to auscultation bilaterally, no rales and no wheezes Cardio Rate: regular rate Rhythm: regular rhythm Heart sounds: no murmurs GI Palpation (GI): Soft to palpation and nontender Auscultation: normal bowel sounds General: Yes no CVA tenderness Back/Spine/Pelvis Back: no CVA tenderness Thoracic/Lumbar Spine: No lumbar spinal tenderness Skin Rashes: no rashes Extrem General: Yes no clubbing, cyanosis or edema Coding Level of Care Code Est Pt Level 4 (67967) Diagnoses Frontal lobe dementia G31.09; F02.80 Paroxysmal atrial fibrillation I48.0 Essential hypertension I10 Pure hypercholesterolemia E78.00 Smoker F17.200 Additional Codes CHARLEE-7 Assessment Billing - CHARLEE-7 Assessment Tool: CHARLEE-7 Assessment 42381 ([id number]) PHQ-9 - 67361 - PHQ-9 Billing: Yes ([id number]) Assessment & Plan Assessment & Plan (1) Frontal lobe dementia: Code(s): G31.09 - Other frontotemporal neurocognitive disorder; F02.80 - Dementia in other diseases classified elsewhere, unspecified severity, without behavioral disturbance, psychotic disturbance, mood disturbance, and anxiety Category: Medical Plan: Patient apparently has bene declining cognitively as his rest home / skilled nursing staff is now requesting to have his HCP activated since they believe that he is no longer capable of making his own healthcare-related decisions Patient currently has his brother listed as his HCP, with his sister as the alternate - a copy of his HCP form will be scanned into his chart for documentation purposes I will go ahead and complete and activate his HCP form today (2) Paroxysmal atrial fibrillation: Code(s): I48.0 - Paroxysmal atrial fibrillation Category: Medical Plan: He is currently in sius rhythm on exam today Continue Fleicanide 50 mg Q 12 hours and Verapamil ER 120 mg QD He does not appear to have been on any Rx for thromboembolism prophylaxis over the past few years Follow up with cardiology as scheduled (3) Essential hypertension: Code(s): I10 - Essential (primary) hypertension Category: Medical Plan: Reinforced low sodium diet Continue Verapamil ER 120 mg QD (4) Pure hypercholesterolemia: Code(s): E78.00 - Pure hypercholesterolemia, unspecified Category: Medical Plan: Reinforced low cholesterol diet Continue Rosuvastatin 5 mg QD Will have patient get some repeat labs and fasting lipids in 4 months for follow up (5) Smoker: Code(s): F17.200 - Nicotine dependence, unspecified, uncomplicated Category: Social Hx Plan: Patient is currently still smoking and due to his cognitive impairment, advising him to quit smoking at this point would not be realistic Plan Follow up in 4 months Orders: Orders Complete Blood Count Auto Diff 4 Months D64.9 - Anemia, unspecified Comprehensive Addy. Panel Fast 4 Months E78.00 - Pure hypercholesterolemia, unspecified Lipid Panel 4 Months E78.00 - Pure hypercholesterolemia, unspecified TSH reflex Free T4 4 Months E78.00 - Pure hypercholesterolemia, unspecified UA CC w/rflx Micro + Cult 4 Months R30.0 - Dysuria Vitamin B12 and Folate 4 Months E53.8 - Deficiency of other specified B group vitamins Vitamin D 25-OH Total 4 Months E55.9 - Vitamin D deficiency, unspecified
--- OUTSIDE RECORDS SUMMARY | 2024-10-04 13:13 | XMS_ITS | Clinical Summary ---
Author Organization [facility] Address [address] [place] [address] Care Team Providers Care Stringer Machine Tender Name Role Phone Unavailable Primary Care Provider Unavailabl e Social History Tobacco Use Types Packs/Day Years Used Date Smoking Tobacco: Never Assessed Sex and Gender Information Value Date Recorded Sex Assigned at Not on file Gender Identity Not on file Sexual Orientation Not on file Plan of Treatment Not on file
== END 2024-10-04 13:12 | disposition home or self-care (01) ==
LOC: HO.HMCH 12:40
PROVIDERS: PCP Internal Medicine; Visit Provider Internal Medicine
DX: G31.09 Other frontotemporal neurocognitive disorder (principal); F02.80 Dementia in other diseases classified elsewhere, unspecified severity, without behavioral disturbance, psychotic disturbance, mood disturbance, and anxiety; I48.0 Paroxysmal atrial fibrillation; I10 Essential (primary) hypertension; E78.00 Pure hypercholesterolemia, unspecified; F17.200 Nicotine dependence, unspecified, uncomplicated

== ENCOUNTER → 2024-10-04 12:39 | Outpatient (BNVA) | payer MEDICARE, MEDICAID, SELFPAY | PROVIDERS: PCP Internal Medicine; Visit Provider Internal Medicine | DX: G31.09 Other frontotemporal neurocognitive disorder (principal); F02.80 Dementia in other diseases classified elsewhere, unspecified severity, without behavioral disturbance, psychotic disturbance, mood disturbance, and anxiety; I48.0 Paroxysmal atrial fibrillation; I10 Essential (primary) hypertension; E78.00 Pure hypercholesterolemia, unspecified | CPT/HCPCS: 96127; 99212 ==

== ENCOUNTER 2025-02-13 10:40 | Outpatient (AMB) | payer MEDICARE, MEDICAID, SELFPAY ==
[2025-02-13 10:43] VITALS: BP 110/86; PULSE 96; O2SAT 96; BMI 22.6
--- NOTE | 2025-02-13 10:43 | A.OFFPC_ITS ---
Vital Signs 02/13/25 10:43 Height 5 ft 10 in Weight 157 lb 4 oz BMI 22.6 BP 110/86 Blood Pressure Location Lt brachial Position Sitting Pulse 96 Pulse Source Pulse Oximeter Pulse Oximetry (%) 96 Oxygen Delivery Method Room Air Intake Visit [facility] Audio/Video Technician Required: No Accompanied by: Self / Same As Patient Allergies No Known Allergies Allergy (Verified 02/13/25 11:36) Medication List - Last Reconciled 02/13/25 by Hoang Olvera MD acetaminophen 650 mg PO Q6H PRN flecainide 50 mg PO Q12H loperamide 2 mg PO Q4H PRN rosuvastatin 5 mg PO DAILY verapamil ER 120 mg PO DAILY Tobacco use date assessed: 02/13/25 Dental Screening Dental Screen Date: 02/13/25 Did you have a dental visit in the last 12 months?: No Did you have a dental problem in the last 6 months where you did not have access to dental care?: No Was dental information given to patient?: No HPI [facility] f/u HPI Details Patient comes in today for his follow up visit States that he feels okay He is still residing in a rest home / usp and he had his HCP activated at his last visit as his cognition has been declining gradually and he is now unable to make healthcare decisions for himself and needs help with his ADLs, per his usp staff He denies any headaches or dizziness Denies any chest pains, no increased SOB No nausea/vomiting, no abdominal pain No change in bowel habits noted He had his follow up labs done at [facility] last week and he brought in a copy of his recent lab results for our review [facility] Medical History Smoker Pure hypercholesterolemia Essential hypertension Paroxysmal atrial fibrillation Chronic cardiac arrhythmia Frontal lobe dementia Surgical History No pertinent past surgical history Family History Mother No problems noted. Father No problems noted. Social History Housing: House Alcohol intake: never Patient Tobacco Use Status: Current everyday Tobacco user Tobacco use type: Cigarette Cigarettes Per Day: 9 e-Cigarette/Vaping Use: Never Used Second Hand Smoke Exposure: Yes service: No Current occupational status: employed Cognitive needs: No Hearing needs: No Vision needs: Yes (reading glasses) Questionnaire PHQ-9 Over the last 2 weeks, how often have you been bothered by any of the following problems? 1. Little interest or pleasure in doing things: not at all 2. Feeling down, depressed, or hopeless: not at all 3. Trouble falling or staying asleep, or sleeping too much: not at all 4. Feeling tired or having little energy: not at all 5. Poor appetite or overeating: not at all 6. Feeling bad about yourself - or that you are a failure or have let yourself or your family down: not at all 7. Trouble concentrating on things, such as reading the newspaper or watching television: not at all 8. Moving or speaking so slowly that other people could have noticed. Or the opposite - being so fidgety or restless that you have been moving around a lot more than usual: not at all 9. Thoughts that you would be better off or of hurting yourself in some way: not at all Total score: 0 Depression Screening Interpretation: Negative Depression Screening Done: Yes 09402 - PHQ-9 Billing: Yes Source: Developed by Drs. Elie Currie, Sultana Rowley, Nick Leon and colleagues, with an educational ida from [employer]. Thrive Questionnaire Date Thrive assessed: 02/13/25 I am a: Patient What is your living situation today?: I have a steady place to live Within the past 12 months, did the food you bought not last and you didn't have the money to get more?: I choose not to answer this question Within the past 12 months, did you worry whether your food would run out before you got money to buy more?: I choose not to answer this question Do you have trouble paying for medicines?: No Do you have trouble getting transportation to medical appointments?: No Do you have trouble paying your heating and electricity bill?: No Do you have trouble taking care of your child, family member or friend?: No Do you have trouble with day-to-day activities such as bathing, preparing meals, shopping, managing finances, etc.?: No Are you currently unemployed and looking for a job?: Yes Are you interested in more education?: No Please select the resources that you would like help with: None Currently or been in a relationship where the following occur: I choose not to answer THRIVE Score: 0 AUDIT C Alcohol Use Questionnaire (AUDIT-C) 1. How often do you have a drink containing alcohol?: Never 3. How often do you have six or more drinks on one occasion?: Never Total Score: 0 Score Reviewed/Action Taken: Yes CHARLEE-7 AMB Questionnaire CHARLEE-7 Date CHARLEE - 7 assessed: 02/13/25 Feeling nervous, anxious, or on edge: 0 = Not at all Not being able to stop or control worryin = Not at all Worrying too much about different things: 0 = Not at all Trouble relaxin = Not at all Being so restless that it is hard to sit still: 0 = Not at all Becoming easily annoyed or irritable: 0 = Not at all Feeling afraid as if something awful might happen: 0 = Not at all Total CHARLEE-7 score (0-4 normal; 5-9 mild; 10-14 moderate; 15-21 severe): 0 Source: Developed by Drs. Elie Currie, Sultana Rowley, Nick Leon and colleagues, with an educational ida from [employer]. Review of Systems Const Details: Patient denies any acute issues or symptoms but his cognition has been declining and per correspondence from his usp staff previously, he is now no longer able to make healthcare decisions on his own so information here may not necessarily be accurate or reliable Denies chills, Denies fatigue, Denies fever(s) and Denies headache(s) ENT Denies dysphagia, Denies dizziness, Denies otalgia, Denies headache(s), Denies neck pain, Denies odynophagia and Denies sore throat Card Denies chest pain, Denies palpitations and Denies dyspnea Resp Denies chest congestion, Denies cough and Denies dyspnea GI Denies abdominal pain, Denies constipation, Denies dysphagia, Denies heartburn, Denies diarrhea, Denies nausea, Denies odynophagia and Denies vomiting Denies difficulty urinating, Denies dysuria, Denies nocturia and Reports urinary incontinence (mostly at night, per usp staff) Musc Denies back pain and Denies neck pain Skin/Breast Denies rash Neuro Denies dizziness, Denies headache(s) and Reports memory loss (per usp staff) Psych Reports memory loss (per usp staff) Endo Denies fatigue and Denies palpitations Physical exam (Primary Care) Vital Signs: Last Vital Signs Pulse 96 02/13/25 10:43 BP 110/86 02/13/25 10:43 Pulse Ox 96 02/13/25 10:43 Oxygen Delivery Method Room Air 02/13/25 10:43 BMI result Body Mass Index 22.6 Tobacco/Smoking Status: Tobacco use Status Tobacco use date assessed 02/13/25 02/13/25 10:51 Patient Tobacco Use Status Current everyday Tobacco 02/13/25 10:51 Tobacco use type Cigarette 02/13/25 10:51 e-Cigarette/Vaping Use Never Used 02/13/25 10:51 PHQ-9: PHQ-9 Score PHQ-9: Total score 0 02/13/25 10:51 Depression Screening Interpretation: Negative Thrive Assessment: Date of Thrive Assessment Date Thrive assessed 02/13/25 02/13/25 10:51 Currently or been in a relationship where the following occur: I choose not to answer Const General: no acute distress and alert HENMT Ears: TM's normal bilaterally and EAC's normal Throat: Yes posterior oropharynx normal and Yes tonsils normal (no TP congestion) Neck Neck: Yes supple and No lymphadenopathy Thyroid: Thyroid normal Resp Auscultation: clear to auscultation bilaterally, no rales and no wheezes Cardio Rate: regular rate Rhythm: regular rhythm Heart sounds: no murmurs GI Palpation (GI): Soft to palpation and nontender Auscultation: normal bowel sounds General: Yes no CVA tenderness Back/Spine/Pelvis Back: no CVA tenderness Thoracic/Lumbar Spine: No lumbar spinal tenderness Skin Rashes: no rashes Extrem General: Yes no clubbing, cyanosis or edema Coding Level of Care Code Est Pt Level 4 (31360) Diagnoses Frontal lobe dementia G31.09; F02.80 Paroxysmal atrial fibrillation I48.0 Essential hypertension I10 Pure hypercholesterolemia E78.00 Smoker F17.200 Additional Codes PHQ-9 - 78541 - PHQ-9 Billing: Yes ([id number]) Assessment & Plan Assessment & Plan (1) Frontal lobe dementia: Code(s): G31.09 - Other frontotemporal neurocognitive disorder; F02.80 - Dementia in other diseases classified elsewhere, unspecified severity, without behavioral disturbance, psychotic disturbance, mood disturbance, and anxiety Category: Medical Plan: Patient has reportedly been declining cognitively as his rest home / usp staff previously requested to have his HCP activated at his last visit as they believe that he is no longer capable of making his own healthcare-related decisions Patient currently has his brother listed as his HCP, with his sister as the alternate - a copy of his HCP form has been scanned into his chart for documentation purposes (2) Paroxysmal atrial fibrillation: Code(s): I48.0 - Paroxysmal atrial fibrillation Category: Medical Plan: He currently remains in sinus rhythm on his exam today Continue Fleicanide 50 mg Q 12 hours and Verapamil ER 120 mg QD He does not appear to have been on any Rx for thromboembolism prophylaxis over the past few years Follow up with cardiology as scheduled (3) Essential hypertension: Code(s): I10 - Essential (primary) hypertension Category: Medical Plan: Reinforced low sodium diet Continue Verapamil ER 120 mg QD (4) Pure hypercholesterolemia: Code(s): E78.00 - Pure hypercholesterolemia, unspecified Category: Medical Plan: Results of his labs done at [facility] last week that patient brought in with him today reviewed and discussed with patient Reinforced low cholesterol diet Continue Rosuvastatin 5 mg QD Will have patient recheck some of his labs and fasting lipids in 4 months for follow up - orders are again printed out and handed to patient to bring back to his usp staff to help him get these done in a few months (5) Smoker: Code(s): F17.200 - Nicotine dependence, unspecified, uncomplicated Category: Social Hx Plan: Patient is currently still smoking and due to his cognitive impairment, advising him to quit smoking at this point would not be realistic Plan Follow up in 4 months Orders: Orders Comprehensive Parks. Panel Fast 4 Months E78.00 - Pure hypercholesterolemia, unspecified Lipid Panel 4 Months E78.00 - Pure hypercholesterolemia, unspecified Vitamin D 25-OH Total 4 Months E55.9 - Vitamin D deficiency, unspecified Complete Blood Count Auto Diff 4 Months D64.9 - Anemia, unspecified
--- OUTSIDE RECORDS SUMMARY | 2025-02-13 13:36 | XMS_ITS | Patient Health Record ---
Author Organization [facility] Address [address] [place] [address] Care Team Providers Care Senior Strategy Analyst Name Role Phone Nathaniel Jensen MD Primary Care Provider Elie Dougherty Unavailable [phone] Allergies No Known Allergies Reason For Referral No Information Medications Medication SIG (Take, Route, Frequency, Duration) Notes Start Date End Date Status Flecainide Acetate 50 MG Tablet as directed Oral every 12 hrs Active Acetaminophen 325 MG Tablet 2 tablet as needed orally every 4 hrs Active Loperamide HCl 2 MG Capsule 1 capsule as needed Orally Four times a day Active Verapamil HCl ER 120 MG Tablet Extended Release Oral; Duration: 30 Active Rosuvastatin Calcium 5 MG Tablet Oral; Duration: 30 Active Social History Tobacco Use: Social History Observation Description Date Details (start date - stop date) Current Smoker NA - NA Social History Drugs/Alcohol: Social Info Question Answer Notes Alcohol Screen Did you have a drink containing alcohol in the past year? No Points 0 Interpretation Negative Tobacco Use: Social Info Question Answer Notes Tobacco Use/Smoking Patient is a current smoker How many cigarettes a day do you smoke? 6-10 Additional Details Category Social Info Options Details Miscellaneous: Marital status: single Occupation: Unemployed Living with: Lives at [facility] Notes: Smokes 8 cigs QD, no EtOH Smokes 5 cigs QD, no EtOH Problems Problem Type SNOMED Code ICD Code Onset Dates Problem Status W/U Status Risk Notes Problem Colon cancer screening (764297744) Colon cancer screening (Z12.11) Active confirmed Vital Signs Blood pressure diastolic 00 mm Hg 03/09/2024 Height 70 in 03/09/2024 Blood pressure systolic 00 mm Hg 03/09/2024 Weight 141 lbs 03/09/2024 BMI 20.23 kg/m2 03/09/2024 Encounters Encounter Location Date Provider Diagnosis [facility] [address] [place] [address] 03/09/2024 Elie Larkin Colon cancer screeni ng Z12.11 and Preprocedural examination Z01.818 [facility] [address] [place] [address] 04/22/2024 Elie Larkin [facility] [address] [place] [id number] 05/04/2024 Elie Larkin [facility] [address] [place] [address] 05/23/2024 Elie Larkin Assessments Encounter Date Diagnosis (ICD [...] Start Date Coverage End Date MEDICARE OF [employer] [address] [place] [address] [id number] MAISHA ROBBINS Self - patient is the insured MEDICA[place] OF [place] [address] [place] [phone] [id number] MAISHA ROBBINS Self - patient is the insured Medical (General) History Medical History History ICD Code Denies UT,DM,CVA,Lung disease,renal dise ase Hypertension Cardiac arrhythmia--Afib Hyperlipidemia 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
--- OUTSIDE RECORDS SUMMARY | 2025-02-13 13:36 | XMS_ITS | Clinical Summary ---
Author Organization [facility] Prior to 07/29/[address] [place] [id number] Care Team Providers Care Table Worker Packager Name Role Phone Unavailable Primary Care Provider Unavailabl e Social History Tobacco Use Types Packs/Day Years Used Date Smoking Tobacco: Never Assessed Sex and Gender Information Value Date Recorded Sex Assigned at Not on file Gender Identity Not on file Sexual Orientation Not on file Plan of Treatment Not on file
== END 2025-02-13 11:19 | disposition home or self-care (01) ==
PROVIDERS: PCP Internal Medicine; Visit Provider Internal Medicine
DX: G31.09 Other frontotemporal neurocognitive disorder (principal); F02.80 Dementia in other diseases classified elsewhere, unspecified severity, without behavioral disturbance, psychotic disturbance, mood disturbance, and anxiety; I48.0 Paroxysmal atrial fibrillation; I10 Essential (primary) hypertension; E78.00 Pure hypercholesterolemia, unspecified; F17.200 Nicotine dependence, unspecified, uncomplicated

== ENCOUNTER → 2025-02-13 10:40 | Outpatient (BNVA) | payer MEDICARE, MEDICAID, SELFPAY | PROVIDERS: PCP Internal Medicine; Visit Provider Internal Medicine | DX: G31.09 Other frontotemporal neurocognitive disorder (principal); F02.80 Dementia in other diseases classified elsewhere, unspecified severity, without behavioral disturbance, psychotic disturbance, mood disturbance, and anxiety; I10 Essential (primary) hypertension; I48.0 Paroxysmal atrial fibrillation; E78.00 Pure hypercholesterolemia, unspecified; F17.200 Nicotine dependence, unspecified, uncomplicated; Z13.31 Encounter for screening for depression; Z13.39 Encounter for screening examination for other mental health and behavioral disorders; Z79.899 Other long term (current) drug therapy | CPT/HCPCS: 96127; 99212 ==